=== PATIENT | female | born 1995 | race African-American/Black ===

== ENCOUNTER 2020-02-02 21:59 | Emergency (ER) | payer OTHER, SELFPAY ==
--- NOTE | ~2020-02-02 | XR_ITS ---
EXAMINATION: XR chest 2V DATE: 02/02/2020 23:53 INDICATION: Chest pain and shortness of breath TECHNIQUE: PA and lateral views of the chest are obtained. COMPARISON: None available FINDINGS: The lungs are free of acute opacities. There is no pleural effusion or pneumothorax. The ca rdiomediastinal silhouette is normal. The visualized bones and soft tissues are unremarkable. IMPRESSION: 1. No acute cardiopulmonary abnormality. Reviewed, dictated and finalized at location A.
[2020-02-02 22:13] VITALS: BP 129/79; PULSE 94; RESP 20; TEMP 36.4; O2SAT 99
--- NOTE | 2020-02-02 22:16 | ECG_ITS ---
Measurements Intervals [place] Rate: 90 P: 49 KS: 158 QRS: 80 QRSD: 68 T: 61 QT: 326 QTc: 400 Interpretive Statements SINUS RHYTHM POSSIBLE LEFT ATRIAL ENLARGEMENT BASELINE ARTIFACT- I, II, III, AVR, AVL BORDERLINE ECG Electronically Signed On 02-03-2020 8:24:42 CDT by Hal Sykes D.O.
[2020-02-02 22:25] LABS: Basophils Absolute Auto 0.1 K/mm3 (0.0-0.1); Eosinophils Absolute Auto 0.3 K/mm3 (0-0.3); Eosinophils Percent Auto 3.6 % (0-4.4); Hematocrit 38.9 % (37.0-47.0); Hemoglobin 12.7 g/dL (12.0-15.0); Immature Granulocyte Absolute 0.02 K/mm3 (0.00-0.031); Immature Granulocyte Percent A 0.3 % (0-0.5); Lymphocytes Absolute Auto 1.34 K/mm3 (0.9-3.2); Lymphocytes Percent Auto 19.2 % (18.3-44.2); Mean Corpuscular HGB Conc 32.6 g/dl (32-36); Mean Corpuscular Volume 85.9 fl (80-100); Mean Platelet Volume 9.4 fl (7.4-10.4); Monocytes Absolute Auto 0.5 K/mm3 (0.1-0.6); Monocytes Percent Auto 6.4 % (2.6-8.5); Neutrophils Absolute Auto 4.9 K/mm3 (1.3-6.7); Neutrophils Percent Auto 69.5 % (45.5-73.1); Platelet Count Result 472 k/mm3 (150-375); Red Blood Count 4.53 M/mm3 (4.2-5.4); Red Cell Distribution Width 13.2 % (11.5-14.5)
[2020-02-02 22:35] LABS: Prothrombin Time 12.8 Seconds (11.1-14.7)
[2020-02-02 22:36] LABS: Partial Thromboplastin Time 26.8 SECONDS (22.3-36.8)
[2020-02-02 22:38] LABS: Anion Gap 8 mmol/L (8-16); Blood Urea Nitrogen 15 mg/dL (7-17); Calcium 9.2 mg/dL (8.4-10.2); Carbon Dioxide 26 mmol/L (22-30); Chloride 105 mmol/L (98-107); Estimated Glomerular Filt Rate > 60; Glucose 138 mg/dL (65-105); Sodium 139 mmol/L (137-145)
[2020-02-02 22:49] LABS: Troponin I < 0.012 ng/mL (0.000-0.034)
--- NOTE | 2020-02-02 23:00 | PC.NURSE ---
PT CALLED FOR XRAY. NO ANSWER.
--- NOTE | 2020-02-02 23:26 | PC.NURSE ---
PT CALLED TO TAKE TO ER ROOM. NO ANSWER, PT NOT IN WAITING ROOM
[2020-02-03 01:04] VITALS: BP 139/66; PULSE 92; RESP 16; O2SAT 99
[2020-02-03 01:33] LABS: Troponin I < 0.012 ng/mL (0.000-0.034)
--- NOTE | 2020-02-03 02:07 | ED.GENADULT ---
HPI - General Adult General Chief complaint: Chest Pain Stated complaint: cp, nausea, wants covid test Time Seen by Provider: 02/02/20 23:59 History of Present Illness HPI narrative: Patient is a 24-year-old female who presents the ER with some chest discomfort. Aching central pain that began while she is at work this evening. Associate with vomiting x1. Pain is subsided. Had mild shortness of breath. No aggravating factors that she can tell. No fevers or chills or sweats or body aches. No known sick contacts. Concerned she may have COVID. Related Data Allergies Allergy/AdvReac Type Severity Reaction Status Date / Time No Known Allergies Allergy Verified 02/03/20 00:57 Review of Systems Review of Systems: All systems reviewed & are unremarkable except as noted in HPI and below Constitutional: Constitutional: Denies chills, Denies fever(s) and Denies weakness ENT: Denies nasal congestion and Denies sore throat Cardiovascular: Cardiovascular: Reports chest pain, Denies rapid heart rate and Denies radiating jaw, neck or arm pain Respiratory: Respiratory: Denies cough, Reports dyspnea and Denies wheezing Gastrointestinal: Gastrointestinal: Denies abdominal pain, Denies nausea and Reports vomiting PMFSH Past Medical History Medical History (Updated 02/03/20 @ 02:11 by Leonel Reyez MD) Healthy female adult Surgical History Surgical History (Updated 02/03/20 @ 02:09 by Leonel Reyez MD) No history of previous surgery Social History Social History (Updated 02/03/20 @ 02:10 by Leonel Reyez MD) Smoking status: Never smoker Alcohol intake: never Exam Narrative: Exam Narrative: GENERAL: Well-appearing, well-nourished, and in no acute distress. HEAD: Normocephalic, atraumatic. ENT: Mucous membranes moist. CHEST: Clear to auscultation. No respiratory distress. Reproducible chest tenderness. HEART: Regular rate and rhythm. Normal peripheral pulses. ABDOMEN: Soft, nontender, nondistended. EXTREMITIES: Normal range of motion. No edema. SKIN: Warm, dry, no rash. NEURO: Alert and oriented x3. Course Course Emergency Course: Unremarkable evaluation. Troponins negative x2. PERC negative. Vital Signs Vital signs: Vital Signs Temperature 97.5 F L 02/02/20 22:13 Pulse Rate 94 02/02/20 22:13 Respiratory Rate 20 02/02/20 22:13 Blood Pressure 129/79 02/02/20 22:13 Pulse Oximetry 99 02/02/20 22:13 Temperature 97.5 F L 02/02/20 22:13 Pulse Rate 92 02/03/20 01:04 Respiratory Rate 16 02/03/20 01:04 Blood Pressure 139/66 02/03/20 01:04 Pulse Oximetry 99 02/03/20 01:04 Medical Decision Making Vital Signs Vital Signs: Vital Signs Temperature 97.5 F L 02/02/20 22:13 Pulse Rate 94 02/02/20 22:13 Respiratory Rate 20 02/02/20 22:13 Blood Pressure 129/79 02/02/20 22:13 Pulse Oximetry 99 02/02/20 22:13 Temperature 97.5 F L 02/02/20 22:13 Pulse Rate 92 02/03/20 01:04 Respiratory Rate 16 02/03/20 01:04 Blood Pressure 139/66 02/03/20 01:04 Pulse Oximetry 99 02/03/20 01:04 Lab Data Result diagrams: 02/02/20 22:18 02/02/20 22:18 Labs: Lab Results 02/02/20 02/02/20 02/02/20 Range/Units 22:18 22:18 22:18 WBC 7.0 (4.5-10.0) K/mm3 RBC 4.53 (4.2-5.4) M/mm3 Hgb 12.7 (12.0-15.0) g/dL Hct 38.9 (37.0-47.0) % MCV 85.9 (80-100) fl MCH 28.0 (26-34) pg MCHC 32.6 (32-36) g/dl RDW 13.2 (11.5-14.5) % Plt Count 472 H (150-375) k/mm3 MPV 9.4 (7.4-10.4) fl Immature Gran % (Auto) 0.3 (0-0.5) % Neut % (Auto) 69.5 (45.5-73.1) % Lymph % (Auto) 19.2 (18.3-44.2) % [place] % (Auto) 6.4 (2.6-8.5) % Eos % (Auto) 3.6 (0-4.4) % Baso % (Auto) 1.0 (0.2-1.2) % Lymph # (Auto) 1.34 (0.9-3.2) K/mm3 [place] # (Auto) 0.5 (0.1-0.6) K/mm3 Eos # (Auto) 0.3 (0-0.3) K/mm3 Baso # (Auto) 0.1 (0.0-0.1) K/mm3 Abs Immat Gran (auto)
[2020-02-03 02:20] VITALS: BP 132/71; PULSE 88; RESP 16; O2SAT 100
== END 2020-02-03 02:21 | disposition home or self-care (01) ==
PROVIDERS: Emergency Provider Emergency Medicine
DX: R07.89 Other chest pain (principal)
CPT/HCPCS: 36415; 71046; 80048; 84484; 85025; 85610; 85730; 93005; 99284